=== PATIENT | male | born 1990 | race Caucasian/White ===

== ENCOUNTER 2017-06-14 18:02 | Observation (INO) | payer BC ==
[2017-06-14] MEDS ORDERED: NS 0.9% 1000 ML* 1,000 ML IV ONE (20:24)
[2017-06-14] MEDS ORDERED: Morphine INJ* 2 MG/ML 1 ML SYRINGE IV ONE (20:24)
[2017-06-14] MEDS ORDERED: Ondansetron INJ* 2 MG/ML VIAL IV ONE (20:24)
--- NOTE | 2017-06-14 20:58 | ED ---
Dimple Klein [place], scribed for Rashad Mcbride MD on 06/14/17 at 2027 . Abdominal Pain/Male - HPI Summary HPI Summary: Patient is a 26 y/o M who presents to the ED with constant RLQ abdominal pain since 1100 today (minimally resided). He denies nausea or fever, but reports decreased appetite. Pt denies hx of similar pain or taking any pain medication since onset. He reports his last meal was at 0800 today. 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 - History of Current Complaint Chief Complaint: EDAbdPain Stated Complaint: ABD PAIN RADIATING TO LOWER BACK Time Seen by Provider: 06/14/17 20:16 Hx Obtained From: Patient, Family/Clinical Implementation Specialist Onset/Duration: Sudden Onset, Lasting Hours, Still Present Timing: Constant Severity Initially: Moderate Severity Currently: Moderate Pain Intensity: 6 Pain Scale Used: 0-10 Numeric Location: Discrete At: RLQ Radiates: Yes Radiates to: Back, Flank Aggravating Factor(s): Nothing Alleviating Factor(s): Nothing Associated Signs And Symptoms: Positive: Decreased Appetite. Negative: Fever, Nausea Similar Episode/Dx As:: None. - Allergies/Home Medications Allergies/Adverse Reactions: Allergies Allergy/AdvReac Type Severity Reaction Status Date / Time No Known Allergies Allergy Verified 10/16/16 19:28 Home Medications: Home Medications NK [No Home Medications Reported] 06/15/17 [History Confirmed 06/15/17] PMH/Surg Hx/FS Hx/Imm Hx Previously Healthy: Yes Infectious Disease History: Denies: Traveled Outside the [place] in Last 30 Days - Family History Known Family History: Negative: Cardiac Disease, Hypertension, Diabetes - Social History Alcohol Use: Occasionally Hx Substance Use: No Substance Use Type: Reports: None Hx Tobacco Use: Yes Smoking Status (MU): Former Smoker Type: Cigarettes, Smokeless Tobacco Amount Used/How Often: 1/2 PPD 1CAN/DAY Length of Time of Smoking/Using Tobacco: 6 YEARS Have You Smoked in the Last Year: Yes Review of Systems Negative: Fever Positive: Abdominal Pain, Other - Decreased appetite. . Negative: Nausea All Other Systems Reviewed And Are Negative: Yes Physical Exam Triage Information Reviewed: Yes Vital Signs On Initial Exam: Initial Vitals Temp Pulse Resp BP Pulse Ox 98.4 F 92 20 125/76 98 06/14/17 18:12 06/14/17 18:12 06/14/17 18:12 06/14/17 18:12 06/14/17 18:12 Vital Signs Reviewed: Yes Appearance: Positive: Well-Appearing, Pain Distress - mild discomfort Skin: Positive: Warm Head/Face: Positive: Normal Head/Face Inspection Eyes: Positive: JOSE ENT: Positive: Hearing grossly normal Neck: Positive: Supple Respiratory/Lung Sounds: Positive: Breath Sounds Present Cardiovascular: Positive: RRR Abdomen Description: Positive: Soft, Guarding, McBurney's Point Tenderness. Negative: Distended Bowel Sounds: Positive: Present Musculoskeletal: Positive: Strength/ROM Intact Neurological: Positive: Alert, Oriented to Person Place, Time Diagnostics - Vital Signs Vital Signs Temp Pulse Resp BP Pulse Ox 06/14/17 19:15 98.4 F 86 16 132/60 100 06/14/17 18:12 98.4 F 92 20 125/76 98 - Laboratory Result Diagrams: 06/14/17 21:21 06/14/17 21:21 Lab Statement: Any lab studies that have been ordered have been reviewed, and results considered in the medical decision making process. - CT Abd/pelvis CT Interpretation Completed By: Radiologist - Impression: Acute appendicitis. Re-Evaluation - Re-Evaluation First Eval Re-Evaluation Time: 00:14 Comment: Reviewed results. case d/w dr mcclain Abdominal Pain Fem Course/Dx - Course Course Of Treatment: 26 y/o M presents with constant RLQ abdominal pain since 1100 today (minimally resided). He denies nausea or fever, but reports decreased appetite. He received fluids, Morphine, and Zofran in ED course. CT abd/pelvis shows, per radiology, Impression: Acute appendicitis. Pt will be admitted. - Diagnoses Provider Diagnoses: Acute appendicitis - Provider Notifications Discussed Care Of Patient With: Bobby Mallory Time Discussed With Above Provider: 00:38 Instructed by Provider To: Admit As Inpatient Admit/Transition Orders Completed By ED Provider: Yes Discharge - Discharge Plan Condition: Fair Disposition: ADMITTED TO [facility] documentation as recorded by the Dimple joel [place] accurately reflects the service I personally performed and the decisions made by me, Rashad Mcbride MD.
[2017-06-14 21:29] LABS: Hematocrit 45 % (42-52); Hemoglobin 14.8 g/dl (14.0-18.0); Mean Corpuscular HGB Conc 33 g/dl (31-36); Mean Corpuscular Hemoglobin 28 pg (27-31); Mean Corpuscular Volume 86 fL (80-94); Mean Platelet Volume 8 um3 (7.4-10.4); Red Blood Count 5.21 10^6/ul (4.0-5.4); Red Cell Distribution Width 14 % (10.5-15); White Blood Count 13.2 10^3/ul (3.5-10.8)
[2017-06-14 21:44] LABS: Albumin 4.3 g/dL (3.2-5.2); BUN/Creatinine Ratio 11.3 (8-20); C Reactive Protein 30.2 mg/L (< 5.00); Calcium 9.7 mg/dL (8.6-10.3); EGFR African American 152.7 (>60); EGFR Non-African American 118.8 (>60); Potassium 3.6 mmol/L (3.5-5.0); Total Bilirubin 0.6 mg/dL (0.2-1.0); Total Protein 7.3 g/dL (6.4-8.9)
[2017-06-14] MEDS ORDERED: Iohexol 300* (CONTRAST) 10 ML SDV IV ONE (22:25)
[2017-06-14 23:05] LABS: Urine Bilirubin Negative (Negative); Urine Glucose Negative (Negative); Urine Nitrite Negative (Negative)
[2017-06-15] MEDS ORDERED: Ondansetron INJ* 2 MG/ML VIAL IV PRN ×2 (01:39→09:40)
[2017-06-15] MEDS ORDERED: ceFOXitin 2 GM IVPREMIX* 2 GM/50 ML BAG IVPB SCH (02:00)
[2017-06-15] MEDS: Morphine INJ* 2 MG/ML 1 ML SYRINGE IV PRN ×2 (03:01→07:40)
--- NOTE | 2017-06-15 07:38 | HP ---
H&P (Free Text) History and Physical: CC: RLQ abdominal pain HPI: This is a generally healthy, 26 yo M who presented to the ED at 6pm with a 7 hr h/o sudden onset abdominal pain. He was mowing a lawn at the time and noted that the pain was worse when hitting any bumps. He noted anorexia, but no N/V/F/C. He denies diarrhea/constipation. He has had no similar pain in the past and no sick contacts. He took no medications and completed work. In the ED he was noted to have elevated WBCs and CRP. CT scan of the abd/ pelvis showed findings c/w acute appendicitis and surgical evaluation was requested. He did have relief from morphine IV. PMH/PSH: None Meds: None NKDA SH: single; works landscaping; +tob (1/2 ppd x 5 yrs); +EtOH (2 beers/day); no IVDA FH: HTN; DM; valvular heart dz; DVT in sister (OCP related). Mother had appendicitis. No h/o Crohn's/colitis. ROS: 14 point review completed. Pertinent +/- as above otherwise negative. PE: Vital Signs Temp 98.2 F 06/15/17 03:10 Pulse 73 06/15/17 03:10 Resp 16 06/15/17 04:01 BP 100/51 06/15/17 03:10 Pulse Ox 95 06/15/17 03:10 Gen: Obese, male, NAD lying in bed looking at phone. HEENT: NCAT, no otorrhinorrhea. Neck: symmetrical; supple; no MARY. Lungs: CTA B; no w/r/r. Heart: reg s1s2, no m/r/g. Abd: obese; no scars; +BS; tender in RLQ with guarding; +Rovsing sx. Ext: warm; no c/c/e; no calf tenderness Intake & Output 06/14/17 06/15/17 06/15/17 18:59 06:59 18:59 Intake Total 1000 Output Total 250 Balance 750 Weight 219 lb Intake: IV Fluids 1000 Oral 0 Output: Urine 250 Laboratory Results - last 24 hr 06/14/17 06/14/17 06/14/17 21:21 21:21 21:21 WBC 13.2 H RBC 5.21 Hgb 14.8 Hct 45 MCV 86 MCH 28 MCHC 33 RDW 14 Plt Count 203 MPV 8 Neut % (Auto) 75.2 Lymph % (Auto) 15.8 L [place] % (Auto) 7.0 Eos % (Auto) 1.3 Baso % (Auto) 0.7 Absolute Neuts (auto) 10.0 H Absolute Lymphs (auto) 2.1 Absolute Monos (auto) 0.9 H Absolute Eos (auto) 0.2 Absolute Basos (auto) 0.1 Absolute Nucleated RBC 0 Nucleated RBC % 0 Sodium 138 Potassium 3.6 Chloride 103 Carbon Dioxide 28 Anion Gap 7 BUN 9 Creatinine 0.80 Est GFR ( Amer) 152.7 Est GFR (Non-Af Amer) 118.8 BUN/Creatinine Ratio 11.3 Glucose 93 Lactic Acid 1.1 Calcium 9.7 Magnesium 2.0 Total Bilirubin 0.60 AST 17 ALT 25 Alkaline Phosphatase 52 C-Reactive Protein 30.20 H Total Protein 7.3 Albumin 4.3 Globulin 3.0 Albumin/Globulin Ratio 1.4 Lipase 16 Urine Color Urine Appearance Urine pH Ur Specific [place] Urine Protein Urine Ketones Urine Blood Urine Nitrate Urine Bilirubin Urine Urobilinogen Ur Leukocyte Esterase Urine Glucose 06/14/17 22:51 WBC RBC Hgb Hct MCV MCH MCHC RDW Plt Count MPV Neut % (Auto) Lymph % (Auto) [place] % (Auto) Eos % (Auto) Baso % (Auto) Absolute Neuts (auto) Absolute Lymphs (auto) Absolute Monos (auto) Absolute Eos (auto) Absolute Basos (auto) Absolute Nucleated RBC Nucleated RBC % Sodium Potassium Chloride Carbon Dioxide Anion Gap BUN Creatinine Est GFR ( Amer) Est GFR (Non-Af Amer) BUN/Creatinine Ratio Glucose Lactic Acid Calcium Magnesium Total Bilirubin AST ALT Alkaline Phosphatase C-Reactive Protein Total Protein Albumin Globulin Albumin/Globulin Ratio Lipase Urine Color Colorless Urine Appearance Clear Urine pH 7.0 Ur Specific [place] 1.002 L Urine Protein Negative Urine Ketones Negative Urine Blood Negative Urine Nitrate Negative Urine Bilirubin Negative Urine Urobilinogen Negative Ur Leukocyte Esterase Negative Urine Glucose Negative CT images reviewed; findings show enhancing appendix wall with surrounding fatty infiltration; c/w appendicitis. Impression: Acute appendicitis. Plan: Laparoscopic appendectomy. Diagnosis d/w the patient and his mother, who accompanied him. Management options discussed and recommendation is for surgery. The nature of the procedure, indications, risks, benefits, alternatives explained. Risks explained including, not limited to, bleeding, infection, pain, scarring, blood clots, pneumonia, N/V, open surgery, and risk of GETA. Expectations regarding hospitalization, recovery, and return to work discussed. All questions answered. He states understanding and agrees to proceed.
[2017-06-15] MEDS ORDERED: Bupivacaine 0.5% W/EPI SDV* 10 ML VIAL INJ ONE (07:41)
[2017-06-15] MEDS ORDERED: Propofol* 10 MG/ML 20 ML BTL IV PUSH ONE (07:54)
[2017-06-15] MEDS ORDERED: Ondansetron INJ* 2 MG/ML VIAL ONE (07:54)
[2017-06-15] MEDS ORDERED: Dexamethasone IV* 4 MG/ML 1 ML (4 MG) ONE (07:54)
[2017-06-15] MEDS ORDERED: Lidocaine 2% PF * 5 ML VIAL ONE (07:54)
[2017-06-15] MEDS ORDERED: Ketorolac INJ* 30 MG/ML 1 ML VIAL ONE (07:54)
[2017-06-15] MEDS ORDERED: Cisatracurium* 2 MG/ML MDV 5 ML ONE (07:55)
[2017-06-15] MEDS ORDERED: KETAMINE HCL* 50 MG/ML 10 ML VIAL ONE (07:55)
[2017-06-15] MEDS ORDERED: fentaNYL* 50 MCG/ML 2 ML VIAL (100 MCG VIAL) ONE (07:55)
[2017-06-15] MEDS ORDERED: Midazolam* 1 MG/ML 5 ML VIAL (5 MG) ONE (07:55)
[2017-06-15] MEDS ORDERED: ceFOXitin 2 GM IVPREMIX* 2 GM/50 ML BAG ONE (07:57)
[2017-06-15] MEDS ORDERED: Famotidine IV* 10 MG/ML 2 ML (20 mg) ONE (08:11)
--- NOTE | 2017-06-15 08:29 | RAD ---
Indication: Right lower quadrant pain Contrast: Administered 132.0 ml of OMNIPAQUE 300 mgi/ml CT of the abdomen and pelvis was performed after oral and IV contrast administration. Coronal and sagittal constructed images were obtained. The lung bases demonstrate no pleural fluid, nodules or masses. Heart demonstrates no pericardial effusion. Liver is normal in size. No focal lesions or intrahepatic ductal dilatation is noted. The spleen is normal in size. The gallbladder demonstrates no calcified gallstones. The common duct is not dilated. The pancreas demonstrates no mass or pancreatic duct dilatation. No adrenal lesions are noted. The kidneys demonstrate symmetric nephrograms without focal lesions or hydronephrosis. No retroperitoneal lymphadenopathy is noted. No dilated loops of bowel are noted. CT of the pelvis demonstrates dilated appendix. Periappendiceal infiltration of fat is noted. Thickening of the base of the cecum is noted. Findings are consistent with acute appendicitis. No evidence of abscess collection is noted. The urinary bladder is otherwise unremarkable. No free fluid is otherwise noted. Diverticulosis without definite evidence of diverticulitis is noted. IMPRESSION: Findings consistent with acute appendicitis. No periappendiceal abscess is noted.
[2017-06-15] MEDS ORDERED: Neostigmine Methylsulfate* 2 MG/2 ML SYRINGE ONE (09:02)
[2017-06-15] MEDS ORDERED: Glycopyrrolate IV* 0.2 MG/ML 1 ML VIAL ONE (09:02)
[2017-06-15] MEDS ORDERED: oxyCODONE/Acetamin 5/325 MG* TAB PO PRN ×2 (09:27)
--- NOTE | 2017-06-15 09:33 | SURGPN ---
Brief Operative Note - Surgery Procedures: PRE/POSTOP DX: ACUTE APPENDICITIS PROC: LAP APPENDECTOMY SURG: MECENAS ASSIST: NONE ANES: GET; TOAL EBL: <10ML IVF: 900ML LR SPEC: APPENDIX DRAIN: NONE COMPL: NONE COND: STABLE TO RR EXTUBATED.
[2017-06-15] MEDS ORDERED: DiMENhydriNATE IV* 50 MG/ML VIAL IV PUSH PRN (09:40)
[2017-06-15] MEDS ORDERED: fentaNYL* 50 MCG/ML 2 ML VIAL (100 MCG VIAL) IV PRN (09:40)
[2017-06-15 10:43] VITALS: BP 113/74
--- NOTE | 2017-06-15 16:36 | OP ---
DATE OF OPERATION: 06/15/17 - ROOM #331 DATE OF : 89 SURGEON: Bobby Mallory MD MERCHANDISING TEAM LEAD: None. ANESTHESIOLOGIST: Raheem Giordano MD ANESTHESIA: General endotracheal. PRE-OP DIAGNOSIS: Acute appendicitis. POST-OP DIAGNOSIS: Acute appendicitis. OPERATIVE PROCEDURE: Laparoscopic appendectomy. ESTIMATED BLOOD LOSS: Less than 10 mL. IV FLUIDS: 900 mL crystalloid. SPECIMEN: Appendix. DRAINS: None. COMPLICATIONS: None. COUNTS: The instrument, needle, and sponge counts correct. DESCRIPTION OF PROCEDURE: The patient was brought to the operating room and placed on the table supine. Sequential compression devices were placed on both lower extremities. He was administered intravenous antibiotics. He was positioned and padded appropriately. He was prepped and draped in usual sterile fashion. Time-out was performed. Local anesthetic was infiltrated into the skin and soft tissue prior to each incision. Entry to the abdomen was using a transumbilical vertical incision using an open technique. After accessing the peritoneal cavity, carbon dioxide was insufflated to a pressure of 15 mmHg through a 12-mm trocar. Under direct visualization, 5-mm trocars were placed in the suprapubic midline and left lower quadrant. Inspection revealed an inflamed suppurative appendicitis with no evidence of perforation or gangrene. The appendix was elevated at the base and a window created in the mesentery of the appendix and the appendix was divided from the cecum with the Endo ELIZABETH stapler with burnham cartridge. The mesentery of the appendix was mobilized using combination of sharp and blunt dissection and then the appendix mesentery was divided with 2 firings of the Endo ELIZABETH stapler with jacobo cartridge. Appendix was placed to endoscopic retrieval bag and retrieved through the umbilical site. Hemostasis was assured. The ports were removed under direct visualization. Carbon dioxide was released and the umbilicus was closed with 0 Polysorb in a figure-of-8 fashion. Skin incisions were closed with 4-0 Monocryl in subcuticular fashion and DermaFlex glue was applied. The patient tolerated the procedure well and was extubated and transferred to Recovery in stable condition. [id number]/[facility] #: [id number] MTDD
== END 2017-06-15 11:02 | disposition home or self-care (01) ==
LOC: ED 18:02 → OR 06-15 01:02 → SSU 06-15 01:27
PROVIDERS: ADMIT Surgery; ATTEND Surgery
PROC: 0DTJ4ZZ Resection of Appendix, Percutaneous Endoscopic Approach (ICD-10-PCS; principal; 2017-06-15 08:00)
DX: K35.80 Unspecified acute appendicitis (principal); Z87.891 Personal history of nicotine dependence
CPT/HCPCS: 36415; 74177; 80053; 81003; 83605; 83690; 83735; 85025; 86140; 87641; 88304; 96374; 96375; 96376; 99283; C1776; G0378; J0694; J1100; J1885; J2250; J2270; J2405; J2704; J3010; Q9967

== ENCOUNTER 2017-12-31 18:46 | Emergency (ER) | payer BC ==
[2017-12-31 19:17] VITALS: BP 112/73
[2017-12-31] MEDS ORDERED: Acetaminophen TAB* 325 MG PO ONE (19:35)
[2017-12-31] MEDS ORDERED: Albuterol 2.5 MG/3 ML NEB.SOL* (0.083%) INH ONE (20:30)
--- NOTE | 2017-12-31 20:37 | UC ---
FLU HPI - History of Current Complaint Hx Obtained From: Patient Onset/Duration: Sudden Onset, Lasting Days Severity Currently: Moderate Severity Initially: Moderate Pain Intensity: 7 Associated Signs & Symptoms: Positive: Negative, Myalgia, Cough, Sore Throat, Nasal Congestion - Risk Factors Influenza Risk Factors: Negative <Adrianna De La Fuente - Last Filed: 12/31/17 21:06> <Demetrice Chris - Last Filed: 12/31/17 21:26> - History of Current Complaint Chief Complaint: UCRespiratory Stated Complaint: COUGH,ACHES,FEVER Time Seen by Provider: 12/31/17 20:14 - Allergy/Home Medications Allergies/Adverse Reactions: Allergies Allergy/AdvReac Type Severity Reaction Status Date / Time No Known Allergies Allergy Verified 12/31/17 19:17 PMH/Surg Hx/FS Hx/Imm Hx Previously Healthy: Yes - Surgical History Surgical History: Yes Surgery Procedure, Year, and Place: APPENDECTOMY - Family History Known Family History: Positive: Unknown Negative: Cardiac Disease, Hypertension, Diabetes - Social History Occupation: Employed Full-time Lives: With Family Alcohol Use: Occasionally Substance Use Type: None Smoking Status (MU): Current Some Day Smoker Type: Cigarettes, Smokeless Tobacco Amount Used/How Often: 1/2 PPD 1CAN/DAY Length of Time of Smoking/Using Tobacco: 6 YEARS Have You Smoked in the Last Year: Yes - Immunization History Most Recent Influenza Vaccination: Unknown Most Recent Pneumonia Vaccination: Never <Adrianna De La Fuente - Last Filed: 12/31/17 21:06> Review of Systems Constitutional: Fever, Chills, Fatigue Skin: Negative Eyes: Negative ENT: Sore Throat Respiratory: Cough Cardiovascular: Chest Pain Gastrointestinal: Negative Genitourinary: Negative Motor: Negative Psychological: Negative Is Patient Immunocompromised?: No All Other Systems Reviewed And Are Negative: Yes <Adrianna De La Fuente - Last Filed: 12/31/17 21:06> Physical Exam Triage Information Reviewed: Yes Appearance: Well-Appearing Vital Signs: Initial Vital Signs Temp 101.4 F 12/31/17 19:12 Pulse 107 12/31/17 19:12 Resp 20 12/31/17 19:12 BP 112/73 12/31/17 19:12 Pulse Ox 96 12/31/17 19:12 Vital Signs Reviewed: Yes Eye Exam: Normal ENT: Positive: Pharyngeal erythema Dental Exam: Normal Neck exam: Normal Neck: Positive: 1 Respiratory: Positive: Decreased breath sounds Cardiovascular Exam: Normal Abdominal Exam: Normal Skin Exam: Normal <Adrianna De La Fuente - Last Filed: 12/31/17 21:06> Vital Signs: Initial Vital Signs Temp 101.4 F 12/31/17 19:12 Pulse 107 12/31/17 19:12 Resp 20 12/31/17 19:12 BP 112/73 12/31/17 19:12 Pulse Ox 96 12/31/17 19:12 <Demetrice Chris - Last Filed: 12/31/17 21:26> Flu Course/Dx - Course Course Of Treatment: Patient presents with an unremarkable past medical history. He presents with temperature of 101.4, and was given tyelnol as he hadn ;t taken any for about 24 hours. He has been experiencing chest pain, therefore an EKG was obtained and interpreted at sinus rhythm. He also received an albuterol neb treatment as he had diminished breath sounds, with no real improvment. A chest xray was obtained and was negative for pneumonia. He was treated for influenza with [place] and taken out of work for three days. He was told that is his symptoms do not improve as anticipated that he would need to be re-evaluated. He verbalized understanding of and was in agreement with the discharge plan. - Differential Dx/Diagnosis Differential Diagnosis/HQI/PQRI: Influenza Provider Diagnoses: influenza <Adrianna De La Fuente - Last Filed: 12/31/17 21:06> Discharge <Adrianna De La Fuente - Last Filed: 12/31/17 21:06> <Demetrice Chris - Last Filed: 12/31/17 21:26> - Discharge Plan Condition: Stable Disposition: HOME Prescriptions: Oseltamivir CAP* [Tamiflu CAP*] 75 mg PO BID #10 cap Patient Education Materials: Chest Pain (DC), Influenza (DC) Forms: *Work Release Referrals: Non Staff,Doctor [Primary Care Provider] - Attestation Statement User Type: Provider - I was available for consult. This patient was seen by the JUSTEN. The patient was not presented to, seen by, or examined by me. -Nael <Demetrice Chris - Last Filed: 12/31/17 21:26>
--- NOTE | 2017-12-31 20:57 | RAD ---
INDICATION: Cough. COMPARISON: Comparison is made with a prior study from June 15, 2011. TECHNIQUE: Dual-energy PA and lateral views of the chest were obtained. FINDINGS: The heart is within normal limits in size. Mediastinal and hilar contours appear within normal limits. The lungs are clear. No pleural effusion is present. IMPRESSION: NO EVIDENCE FOR ACTIVE CARDIOPULMONARY DISEASE.
== END 2017-12-31 21:15 | disposition home or self-care (01) ==
LOC: UCEAST 18:46
DX: J11.1 Influenza due to unidentified influenza virus with other respiratory manifestations (principal); F17.210 Nicotine dependence, cigarettes, uncomplicated; F17.220 Nicotine dependence, chewing tobacco, uncomplicated
CPT/HCPCS: 71046; 93005; 99212; A9270-GY; G0463

== ENCOUNTER 2018-11-28 22:26 | Emergency (ER) | payer OTHER ==
[2018-11-28 22:33] VITALS: BP 147/76
[2018-11-28] MEDS ORDERED: Tetan/Diph/Pertus SYR(Tdap)* 0.5 ML SYR(BOOSTRIX) use SYR IM ONE (22:42)
--- NOTE | 2018-11-28 22:47 | ED ---
Upper Extremity Pain - HPI Summary HPI Summary: 28 year male presents with left forearm injury today. He states that it got caught between a dumpster and back of his truck. He states it happened at work. He states he has pain in his left forearm. He is right-handed. No numbness or tingling. He states the area immediately swelled up. He has abrasions noted to left arm. No active bleeding. Unsure when last tetanus was. Has no medical conditions. No other injury. - History of Current Complaint Chief Complaint: EDExtremityUpper Stated Complaint: LEFT ARM INJURY Time Seen by Provider: 11/28/18 22:37 - Allergies/Home Medications Allergies/Adverse Reactions: Allergies Allergy/AdvReac Type Severity Reaction Status Date / Time No Known Allergies Allergy Verified 12/31/17 19:17 PMH/Surg Hx/FS Hx/Imm Hx Endocrine/Hematology History: Denies: Hx Anticoagulant Therapy Cardiovascular History: Denies: Hx Myocardial Infarction Sensory History: Denies: Hx Contacts or Glasses, Hx Hearing Aid Opthamlomology History: Denies: Hx Contacts or Glasses - Surgical History Surgery Procedure, Year, and Place: APPENDECTOMY Infectious Disease History: No Infectious Disease History: Reports: Hx of Known/Suspected MRSA - R forearm cellulitis early 2015 Denies: Traveled Outside the [place] in Last 30 Days - Family History Known Family History: Positive: Unknown Negative: Cardiac Disease, Hypertension, Diabetes - Social History Alcohol Use: Occasionally Hx Substance Use: No Substance Use Type: Reports: None Hx Tobacco Use: Yes Smoking Status (MU): Current Some Day Smoker Type: Cigarettes, Smokeless Tobacco Amount Used/How Often: 1/2 PPD 1CAN/DAY Length of Time of Smoking/Using Tobacco: 6 YEARS Have You Smoked in the Last Year: Yes Review of Systems Negative: Fever Negative: Chest Pain Negative: Shortness Of Breath Positive: Myalgia - left forearm pain All Other Systems Reviewed And Are Negative: Yes Physical Exam Triage Information Reviewed: Yes Vital Signs On Initial Exam: Initial Vitals Temp Pulse Resp BP Pulse Ox 98.3 F 74 18 147/76 98 11/28/18 22:29 11/28/18 22:29 11/28/18 22:29 11/28/18 22:29 11/28/18 22:29 Vital Signs Reviewed: Yes Appearance: Positive: Well-Appearing Skin: Positive: Other - abrasion to left forearm Head/Face: Positive: Normal Head/Face Inspection Eyes: Positive: Normal, Conjunctiva Clear ENT: Positive: Pharynx normal Respiratory/Lung Sounds: Positive: Clear to Auscultation, Breath Sounds Present Cardiovascular: Positive: Normal, RRR Musculoskeletal: Positive: Strength/ROM Intact - left forearm, Other - tenderness midshaft left forearm with edema present, good pulses, good certified drug counselor strength, capillary refill<2 secs Neurological: Positive: Normal Psychiatric: Positive: Normal Diagnostics - Vital Signs Vital Signs Temp Pulse Resp BP Pulse Ox 11/28/18 22:29 98.3 F 74 18 147/76 98 - Laboratory Lab Statement: Any lab studies that have been ordered have been reviewed, and results considered in the medical decision making process. - Radiology arm Radiology Interpretation Completed By: ED Physician Summary of Radiographic Findings: no fx Course/Dx - Course Course Of Treatment: 28 year male presents with left forearm injury today. He states that it got caught between a dumpster and back of his truck. He states it happened at work. He states he has pain in his left forearm. He is right- handed. No numbness or tingling. He states the area immediately swelled up. He has abrasions noted to left arm. No active bleeding. Unsure when last tetanus was. Has no medical conditions. No other injury. On exam has abrasions of left forearm. Has edema noted to mid shaft left forearm with tenderness. Neurovascular intact. X-ray shows no fracture. cleaned abrasion and placed in becca wrap. told to elevate and ice. patient understand and agrees with plan. - Diagnoses Differential Diagnosis/HQI/PQRI: Positive: Contusion, Fracture (Closed), Sprain Provider Diagnoses: Crushing injury of left arm, Abrasion Discharge - Sign-Out/Discharge Documenting (check all that apply): Patient Departure - Discharge Plan Condition: Good Disposition: HOME Patient Education Materials: R.I.C.E. Treatment (ED) Referrals: No Primary Care Phys,NOPCP [Primary Care Provider] - Additional Instructions: use becca on area ice, elevate wash area with soap and water daily, apply neosporin to area Take tyenlol or ibuprofen every 6 hours for pain Return to ED if develop any new or worsening symptoms - Billing Disposition and Condition Condition: GOOD Disposition: Home
--- NOTE | 2018-11-29 16:28 | PN ---
Progress Note - Progress Note Date of Service: 11/28/18 Note: Patient was called and left a message at 4:30 PM to make aware of a punctate radiopaque foreign body visualized either along the skin or within the superficial soft tissues of the proximal volar aspect orienting clinical correlation for foreign body and the skin surface or puncture wound to determine acute relevance. I have stated to the patient he will need to follow up regarding this possible FB. He states he would like to follow up with UC and will go there soon.
== END 2018-11-28 23:17 | disposition home or self-care (01) ==
LOC: ED 22:26
DX: S47.2XXA Crushing injury of left shoulder and upper arm, initial encounter (principal); S40.812A Abrasion of left upper arm, initial encounter; M79.632 Pain in left forearm; Z72.0 Tobacco use; W23.0XXA Caught, crushed, jammed, or pinched between moving objects, initial encounter; Y92.9 Unspecified place or not applicable; Y99.8 Other external cause status
CPT/HCPCS: 90471; 90715; 99282

== ENCOUNTER → 2018-11-29 17:53 | Emergency (ER) | payer OTHER ==
[2018-11-29 18:02] VITALS: BP 135/85
--- NOTE | 2018-11-29 18:20 | ED ---
Laceration/Wound HPI - HPI Summary HPI Summary: 28 year old male returns to ED because a foreign body was seen on his x-ray. Patient was seen last night by me. I did note that the foreign body was present on x-ray but could not find it on exam. patient has been washing the area with soap and water. has not seen a foreign body and in the abrasions. no active bleeding. no fever or spreading redness. - History of Current Complaint Stated Complaint: F/B IN ARM Time Seen by Provider: 11/29/18 18:06 Pain Intensity: 2 - Allergy/Home Medications Allergies/Adverse Reactions: Allergies Allergy/AdvReac Type Severity Reaction Status Date / Time No Known Allergies Allergy Verified 11/29/18 17:59 PMH/Surg Hx/FS Hx/Imm Hx Endocrine/Hematology History: Denies: Hx Anticoagulant Therapy Cardiovascular History: Denies: Hx Myocardial Infarction Sensory History: Denies: Hx Contacts or Glasses, Hx Hearing Aid Opthamlomology History: Denies: Hx Contacts or Glasses - Surgical History Surgery Procedure, Year, and Place: APPENDECTOMY Infectious Disease History: No Infectious Disease History: Reports: Hx of Known/Suspected MRSA - R forearm cellulitis early 2015 Denies: Traveled Outside the [place] in Last 30 Days - Family History Known Family History: Positive: Unknown Negative: Cardiac Disease, Hypertension, Diabetes - Social History Alcohol Use: Occasionally Hx Substance Use: No Substance Use Type: Reports: None Hx Tobacco Use: Yes Smoking Status (MU): Current Some Day Smoker Type: Cigarettes, Smokeless Tobacco Amount Used/How Often: 1/2 PPD 1CAN/DAY Length of Time of Smoking/Using Tobacco: 6 YEARS Have You Smoked in the Last Year: Yes Review of Systems Negative: Fever Negative: Chest Pain Negative: Shortness Of Breath Positive: Other - abrasions to left arm All Other Systems Reviewed And Are Negative: Yes Physical Exam Triage Information Reviewed: Yes Vital Signs On Initial Exam: Initial Vitals Temp Pulse Resp BP Pulse Ox 97.5 F 85 16 135/85 98 11/29/18 17:59 11/29/18 17:59 11/29/18 17:59 11/29/18 17:59 11/29/18 17:59 Vital Signs Reviewed: Yes Appearance: Positive: Well-Appearing Skin: Positive: Warm, Dry, Other - abrasions to left forearm Head/Face: Positive: Normal Head/Face Inspection Eyes: Positive: Normal, Conjunctiva Clear ENT: Positive: Pharynx normal Respiratory/Lung Sounds: Positive: Clear to Auscultation, Breath Sounds Present Cardiovascular: Positive: Normal, RRR Musculoskeletal: Positive: Strength/ROM Intact - left arm, Other - edema noted to left arm Neurological: Positive: Normal Psychiatric: Positive: Normal Diagnostics - Vital Signs Vital Signs Temp Pulse Resp BP Pulse Ox 11/29/18 17:59 97.5 F 85 16 135/85 98 - Laboratory Lab Statement: Any lab studies that have been ordered have been reviewed, and results considered in the medical decision making process. Laceration Repair Course/Dx - Course Course Of Treatment: 28 year old male returns to ED because a foreign body was seen on his x-ray. Patient was seen last night by me. I did note that the foreign body was present on x-ray but could not find it on exam. patient has been washing the area with soap and water. has not seen a foreign body and in the abrasions. no active bleeding. no fever or spreading redness. on exam has abrasions presents on left arm. cleaned area again and no foreign body found. discussed adding on antibiotics but patient declined. warned if develop any fever or spreading redness to return. patient understand and agrees with plan. - Differential Dx Differental Diagnoses: Abrasion, Avulsion, Foreign Body - Clinical Impression Provider Diagnoses: Encounter for wound re-check Discharge - Sign-Out/Discharge Documenting (check all that apply): Patient Departure - Discharge Plan Condition: Good Disposition: HOME Patient Education Materials: Abrasion (ED) Referrals: No Primary Care Phys,NOPCP [Primary Care Provider] - Additional Instructions: keep area clean with soap and water Return to ED if develop any spreading redness or any new or worsening symptoms - Billing Disposition and Condition Condition: GOOD Disposition: Home
== END | disposition home or self-care (01) ==
LOC: ED 17:53
DX: S40.812D Abrasion of left upper arm, subsequent encounter (principal); X58.XXXD Exposure to other specified factors, subsequent encounter; F17.220 Nicotine dependence, chewing tobacco, uncomplicated
CPT/HCPCS: 99281

== ENCOUNTER → 2019-04-07 16:39 | Emergency (ER) | payer SELFPAY ==
[~2019-04-07 16:39] MED LIST: Amoxicillin/Clavulanate TAB* 875 MG PO ONE; Sulfamethox/Trimethoprim DS 800/160* TAB PO ONE; oxyCODONE TAB* 5 MG TAB PO ONE
--- NOTE | 2019-04-07 17:17 | ED ---
Throat Pain/Nasal Congestion - HPI Summary HPI Summary: Patient complains of redness and swelling and pain to tissues around left eye 3 days. Denies trauma, pain with eye movement, vision change, purulent drainage , fever, cough, sore throat, CP, SOB, N/V/D, abdominal pain, change in urine, change in BM. Tylenol 500 mg at 2 PM with some relief. Medical history is none. - History of Current Complaint Chief Complaint: EDEyeProblem Time Seen by Provider: 04/07/19 16:51 Hx Obtained From: Patient Onset/Duration: Gradual Onset, Lasting Days Severity: Moderate Associated Signs And Symptoms: Positive: Negative Cough: None - Allergies/Home Medications Allergies/Adverse Reactions: Allergies Allergy/AdvReac Type Severity Reaction Status Date / Time No Known Allergies Allergy Verified 04/07/19 17:03 PMH/Surg Hx/FS Hx/Imm Hx Endocrine/Hematology History: Denies: Hx Anticoagulant Therapy Cardiovascular History: Denies: Hx Myocardial Infarction History: Denies: Hx Dialysis Sensory History: Denies: Hx Contacts or Glasses, Hx Hearing Aid Opthamlomology History: Denies: Hx Contacts or Glasses EENT History: Denies: Hx Deafness Neurological History: Denies: Hx Dementia Psychiatric History: Denies: Hx Autism - Surgical History Surgery Procedure, Year, and Place: APPENDECTOMY - Immunization History Immunizations Up to Date: No Infectious Disease History: No Infectious Disease History: Reports: Hx of Known/Suspected MRSA - R forearm cellulitis early 2015 Denies: Traveled Outside the [place] in Last 30 Days - Family History Known Family History: Positive: Unknown Negative: Cardiac Disease, Hypertension, Diabetes - Social History Alcohol Use: Occasionally Hx Substance Use: No Substance Use Type: Reports: None Hx Tobacco Use: Yes Smoking Status (MU): Current Some Day Smoker Type: Cigarettes, Smokeless Tobacco Amount Used/How Often: 1/2 PPD 1CAN/DAY Length of Time of Smoking/Using Tobacco: 6 YEARS Have You Smoked in the Last Year: Yes Review of Systems Constitutional: Negative Positive: Other ENT: Negative Cardiovascular: Negative Respiratory: Negative Gastrointestinal: Negative Genitourinary: Negative Musculoskeletal: Negative Skin: Other Neurological: Negative Psychological: Normal All Other Systems Reviewed And Are Negative: Yes Physical Exam - Summary Physical Exam Summary: EOMI. No evidence of ocular trauma or abnormality. Pupils equal and reactive. Tenderness to palpation of eyelid, forehead and skin lateral to left thigh and inferior to left thigh. Positive erythema superior laterally and inferior to left eye. Triage Information Reviewed: Yes Vital Signs On Initial Exam: Initial Vitals Temp Pulse Resp BP Pulse Ox 97.9 F 87 18 133/92 100 04/07/19 16:43 04/07/19 16:43 04/07/19 16:43 04/07/19 16:43 04/07/19 16:43 Vital Signs Reviewed: Yes Appearance: Positive: Well-Appearing Skin: Positive: Warm Head/Face: Positive: Normal Head/Face Inspection Eyes: Positive: Normal ENT: Positive: Normal ENT inspection Neck: Positive: Supple Respiratory/Lung Sounds: Positive: Clear to Auscultation Cardiovascular: Positive: Normal Abdomen Description: Positive: Nontender Musculoskeletal: Positive: Normal Neurological: Positive: Normal Psychiatric: Positive: Normal AVPU Assessment: Alert - Dickinson Coma Scale Best Eye Response: 4 - Spontaneous Best Motor Response: 6 - Obeys Commands Best Verbal Response: 5 - Oriented Coma Scale Total: 15 Diagnostics - Vital Signs Vital Signs Temp Pulse Resp BP Pulse Ox 04/07/19 16:43 97.9 F 87 18 133/92 100 - Laboratory Lab Statement: Any lab studies that have been ordered have been reviewed, and results considered in the medical decision making process. EENT Course/Dx - Course Course Of Treatment: Patient complains of redness and swelling and pain to tissues around left eye 3 days. Denies trauma, pain with eye movement, vision change, purulent drainage, fever, cough, sore throat, CP, SOB, N/V/D, abdominal pain, change in urine, change in BM. Tylenol 500 mg at 2 PM with some relief. Medical history is none. Physical exam:EOMI. No evidence of ocular trauma or abnormality. Pupils equal and reactive. Tenderness to palpation of eyelid, forehead and skin lateral to left thigh and inferior to left thigh. Positive erythema superior laterally and inferior to left eye. In contrast to triage note patient has no symptoms witheye movement, no pain of the globe itself. Pain is all of the eyelid and tissue surrounding the eye. Positive erythema and tenderness to palpation of left forehead, left eyebrow, left eyelid. Patient acuity test tests normal. Diagnosis periorbital cellulitis. Rx for Augmentin. - Diagnoses Provider Diagnoses: Periorbital cellulitis of left eye Discharge - Sign-Out/Discharge Documenting (check all that apply): Patient Departure Patient Received Moderate/Deep Sedation with Procedure: No - Discharge Plan Condition: Stable Disposition: HOME Prescriptions: Amoxicillin/Clavulanate TAB* [Augmentin TAB 875*] 875 mg PO BID #20 tab Oxycodone HCl 5 mg PO TID 2 Days #6 tablet MDD 3 tabs Patient Education Materials: Periorbital Cellulitis in Adults (ED) Referrals: No Primary Care Phys,NOPCP [Primary Care Provider] - Additional Instructions: Take antibiotics as directed. Follow-up with primary care. Return to the ED for any new or worsening symptoms. - Billing Disposition and Condition Condition: STABLE Disposition: Home
[2019-04-07 17:43] VITALS: BP 142/86
== END | disposition home or self-care (01) ==
LOC: ED 16:39
DX: H05.012 Cellulitis of left orbit (principal); F17.290 Nicotine dependence, other tobacco product, uncomplicated; F17.210 Nicotine dependence, cigarettes, uncomplicated
CPT/HCPCS: 99282; A9270-GY

== ENCOUNTER 2020-01-29 20:18 | Emergency (ER) | payer SELFPAY ==
[2020-01-29 20:27] VITALS: BP 123/75
[2020-01-29] MEDS ORDERED: Fluorescein Sodium TOPICAL* 1 MG TEST STRIP OPHTHALMIC ONE (20:29)
[2020-01-29] MEDS ORDERED: Tetracaine 0.5% OPTH.SOL 4 ML* 1 DROP BTL ONE (20:30)
[2020-01-29] MEDS ORDERED: Eye Irrigation Solution 30 ML BOTTLE ONE (20:31)
--- NOTE | 2020-01-29 20:32 | UC ---
Eye Complaint HPI - HPI Summary HPI Summary: Pleasant 29 yo gentleman C/o 2 days progressive R eye pain. Working on truck on Sat (today is Saturday), and a piece of rust flew into his eye. He thinks he got most of the rust out, but feels like something still is there. Light is painful. Eye is watery. tet immun 2018 - History of Current Complaint Chief Complaint: UCEye Stated Complaint: EYE COMPLAINT Time Seen by Provider: 01/29/20 20:29 Hx Obtained From: Patient, Family/Manager Delivery Pain Intensity: 5 - Allergies/Home Medications Allergies/Adverse Reactions: Allergies Allergy/AdvReac Type Severity Reaction Status Date / Time No Known Allergies Allergy Verified 01/29/20 20:27 Home Medications: Home Medications Ciprofloxacin 0.3% OPTH.DEON* [Cipro 0.3% Opth*] 2 drop RIGHT EYE Q4H 5 Days #1 btl 01/29/20 [Rx] Ibuprofen TAB* [Motrin TAB* 600 MG] 600 mg PO Q8H PRN #30 tab 01/29/20 [Rx] PMH/Surg Hx/FS Hx/Imm Hx Previously Healthy: Yes Other History Of: Negative For: Anticoagulant Therapy - Surgical History Surgical History: Yes Surgery Procedure, Year, and Place: APPENDECTOMY - Family History Known Family History: Positive: Unknown Negative: Cardiac Disease, Hypertension, Diabetes - Social History Alcohol Use: Occasionally Substance Use Type: None Smoking Status (MU): Light Every Day Tobacco Smoker Type: Cigarettes, Smokeless Tobacco Amount Used/How Often: 1/2 PPD 1CAN/DAY Length of Time of Smoking/Using Tobacco: 6 YEARS Have You Smoked in the Last Year: Yes - Immunization History Most Recent Influenza Vaccination: Unknown Most Recent Pneumonia Vaccination: Never Review of Systems All Other Systems Reviewed And Are Negative: Yes Constitutional: Positive: Negative Skin: Positive: Negative Eyes: Positive: Other - see hpi ENT: Positive: Negative Respiratory: Positive: Negative Cardiovascular: Positive: Negative Gastrointestinal: Positive: Negative Genitourinary: Positive: Negative Motor: Positive: Negative Neurovascular: Positive: Negative Musculoskeletal: Positive: Negative Neurological/Mental Status: Positive: Negative Psychological: Positive: Negative Is Patient Immunocompromised?: No Physical Exam Triage Information Reviewed: Yes Appearance: Well-Appearing, Well-Nourished Vital Signs: Initial Vital Signs Temp 98 F 01/29/20 20:21 Pulse 82 02/28/20 20:21 Resp 16 01/29/20 20:21 BP 123/75 01/29/20 20:21 Pulse Ox 99 01/29/20 20:21 Vital Signs Reviewed: Yes Eye Exam: Other - see AFIA RAHMAN EOMI lid flipped without f/b noted + photophobic ENT Exam: Normal Neck exam: Normal Neck: Positive: Supple, Nontender Respiratory Exam: Normal Cardiovascular Exam: Normal Abdominal Exam: Normal Musculoskeletal Exam: Normal Neurological Exam: Normal - grossly nonfocal Psychological Exam: Normal - nad Skin Exam: Normal - no visible or reported rash Eye Complaint Course/Dx - Course Course Of Treatment: Tetracaine / flourescein -> + fb upper medial R cornea with rust ring. Attempt to remove via q-tip, beveled needle. But unable to remove. We do not have ophthalmology airway controller available tonight. D/w pt coa / tx plan. They will go to [facility] ED. Pt's spouse will drive. Erythromycin opthalmic ointment x 1 here. Also norco 5/325 po x 2 here (pt is not driving, denies hx addiction). Questions as posed answered to the best of my ability. Spoke with [facility] 21:18 - Differential Dx/Diagnosis Provider Diagnosis: Foreign body, eye Discharge ED - Sign-Out/Discharge Documenting (check all that apply): Patient Departure All imaging exams completed and their final reports reviewed: No Studies - Discharge Plan Condition: Stable Disposition: HOME-RECOMMEND TO ED Prescriptions: Ciprofloxacin 0.3% OPTH.DEON* [Cipro 0.3% Opth*] 2 drop RIGHT EYE Q4H 5 Days #1 btl Ibuprofen TAB* [Motrin TAB* 600 MG] 600 mg PO Q8H PRN #30 tab PRN Reason: Pain Patient Education Materials: Eye Foreign Body (ED) Referrals: No Primary Care Phys,NOPCP [Primary Care Provider] - Additional Instructions: You have a metallic appearing object in your eye. Please go to [facility] Emergency Department ([address] [place] [address] ) for further evaluation and treatment. Stop and call [address] - Billing Disposition and Condition Condition: STABLE Disposition: Home-Recommend to ED
[2020-01-29] MEDS ORDERED: HYDROcodone/ACETAMIN 5-325 MG* 1 TAB PO ONE (21:23)
[2020-01-29] MEDS ORDERED: Erythromycin OPTH OINT* APPLIC OINT RIGHT EYE ONE (21:23)
== END 2020-01-29 21:50 | disposition home health service (06) ==
LOC: UCEAST 20:18
DX: T15.01XA Foreign body in cornea, right eye, initial encounter (principal); X58.XXXA Exposure to other specified factors, initial encounter; Y92.9 Unspecified place or not applicable; F17.210 Nicotine dependence, cigarettes, uncomplicated; F17.290 Nicotine dependence, other tobacco product, uncomplicated
CPT/HCPCS: 99213; A9270-GY; G0463